=== PATIENT | male | born 1975 | race Caucasian/White ===

== ENCOUNTER 2018-03-03 07:57 | Emergency (ER) | payer OTHER ==
[~2018-03-03] VITALS: Ht 185.4 cm; Wt 102.3 kg
[2018-03-03] MEDS ORDERED: HYDROCODONE/ACETAMINOPHEN 5-325 MG TABLET PO ONE (08:30)
[2018-03-03] MEDS ORDERED: IBUPROFEN 600 MG TABLET PO ONE (08:30)
[2018-03-03 09:32] VITALS: BP 123/69
== END 2018-03-03 09:38 | disposition home or self-care (01) ==
LOC: EMS 07:58
DX: S67.193A Crushing injury of left middle finger, initial encounter (principal); S67.195A Crushing injury of left ring finger, initial encounter; X58.XXXA Exposure to other specified factors, initial encounter; Y93.89 Activity, other specified; Y92.89 Other specified places as the place of occurrence of the external cause; Y99.0 Civilian activity done for income or pay
CPT/HCPCS: 29130; 73140; 96372; 99284; J0690